=== PATIENT | female | born 1965 | race Caucasian/White ===

== ENCOUNTER 2016-07-13 07:41 | Day surgery (SDC) | payer OTHER ==
[2016-07-13 08:16] VITALS: BMI 44.9
[2016-07-13] MEDS ORDERED: PROPOFOL 20 ML ONE (10:55)
[2016-07-13] MEDS ORDERED: MIDAZOLAM HCL 2 MG/2 ML SINGLE DOSE VIAL ONE (10:56)
[2016-07-13] MEDS ORDERED: ceFAZolin SODIUM 1 GM VIAL ONE (11:24)
[2016-07-13] MEDS ORDERED: DEXAMETHASONE SOD PHOSPHATE 4 MG/1 ML VIAL ONE (11:26)
[2016-07-13] MEDS ORDERED: ONDANSETRON 4 MG/2 ML VIAL ONE (11:26)
[2016-07-13] MEDS ORDERED: BUPIVACAINE HCL/PF 0.25% (2.5MG/ML) 10 ML VIAL IJ ONE (11:38)
[2016-07-13] MEDS ORDERED: KETOROLAC TROMETHAMINE 30 MG/1 ML VIAL ONE (11:54)
[2016-07-13] MEDS ORDERED: LACTATED RINGERS SOLUTION 1,000 ML IV SCH (12:15)
[2016-07-13] MEDS ORDERED: ONDANSETRON 4 MG/2 ML VIAL IVPUSH PRN (12:59)
[2016-07-13] MEDS ORDERED: oxyCODONE HCL 5 MG TABLET PO PRN (12:59)
[2016-07-13] MEDS ORDERED: oxyCODONE HCL 5 MG TABLET ONE (13:21)
[2016-07-13 14:56] VITALS: TEMP 98.2
[2016-07-13 15:01] VITALS: BP 136/62; PULSE 72
--- NOTE | 2016-07-14 08:26 | OP ---
DATE OF OPERATION: 07/13/2016 SURGEON: Nicol Park MD NETWORK MANAGER: DELFIN Marks PREOPERATIVE DIAGNOSES:1. Right knee medial and lateral meniscal tear. 2. Right knee cartilage injury. 3. Right knee synovitis. POSTOPERATIVE DIAGNOSES: 1. Right knee medial and lateral meniscal tear. 2. Right knee cartilage injury. 3. Right knee synovitis. PROCEDURE: 1. Right knee arthroscopy, partial meniscectomy medial and lateral meniscus. 2. Right knee arthroscopy with chondroplasty and abrasion-plasty. 3. Right knee arthroscopy with synovectomy, major CPT code 80275, 10092, 2976. FINDINGS: 1. Medial meniscus posterior horn and body tear. 2. Lateral meniscus posterior horn tear. 3. Synovitis patellofemoral, medial and lateral notch area. 4. Grade 2-3 cartilage medial and femoral condyle. 5. ACL and PCL intact. 6. Diffuse grade 1-2 cartilage lateral joint line. 7. Grade 2-4 cartilage of the patellar and patellofemoral trochlea. DESCRIPTION OF PROCEDURE: Informed consent was obtained. The patient was taken to the operating room where the right lower extremity was prepped and draped in a sterile fashion. A tourniquet was placed on the right upper thigh but not inflated. Using standard arthroscopic technique, a lateral incision and portal were made which allowed for introduction of the camera into the suprapatellar bursa. This was then taken to the medial joint line where under direct visualization, a medial incision and portal were made. Excessive synovium noted in the medial, lateral, patellofemoral and notch area was removed by the up-biting shaver and Bovie cautery. This was found to bring inflammatory tissue into the joint surface, a source of joint pain and dysfunction. Probing of the medial and lateral meniscus found tears described in the findings. These were removed with an up-biting shaver and taken back to a stable rim. Grade 2-3 degenerative changes were treated with chondroplasty, removing all flaking surfaces with low setting Bovie used along the periphery. Grade 4 changes were treated with abrasion-plasty. All areas of the knee were once again re-examined. The knee was then drained. A single suture was placed on all portals. Sterile dressing was placed. The patient was transferred to the recovery room. NICOL PARK M.D. HERRERA/[id number]
--- NOTE | 2016-07-17 13:44 | PATH ---
Surgical Pathology Report Patient Name: SARAI TRAN [facility]. Rec. #: [id number] /Age/Gender: 1965 (Age: 51) / F Account: [id number] Location: [facility], 1928–1983 AMBULATORY Taken: 07/13/2016 Received: 07/13/2016 Reported: 07/17/2016 Physicians: Jason Caraballo M.D. Specimen(s) Received RIGHT KNEE SHAVINGS Clinical History Internal derangement right knee Final Diagnosis SOFT TISSUE, RIGHT KNEE, ARTHROSCOPIC SHAVINGS: SYNOVIUM AND FIBROCARTILAGE WITH MYXOHYALINE DEGENERATION. Electronically Signed Jamie Weller M.D. Gross Description Received in formalin, labeled "right knee shavings" is a 4.5 x 4.0 x 0.3 cm aggregate of magallon-yellow soft tissue fragments. A software support representative portion is submitted in one cassette. 07/16/201607/16/2016
== END 2016-07-13 14:45 | disposition home or self-care (01) ==
LOC: FASU 07:41
PROVIDERS: ATTEND Orthopaedic Surgery
PROC: 0SBC4ZZ Excision of Right Knee Joint, Percutaneous Endoscopic Approach (ICD-10-PCS; 2016-07-13)
PROC: 0SBC4ZZ Excision of Right Knee Joint, Percutaneous Endoscopic Approach (ICD-10-PCS; 2016-07-13)
PROC: 0SBC4ZZ Excision of Right Knee Joint, Percutaneous Endoscopic Approach (ICD-10-PCS; principal; 2016-07-13 11:28)
DX: S83.241A Other tear of medial meniscus, current injury, right knee, initial encounter (principal); S83.281A Other tear of lateral meniscus, current injury, right knee, initial encounter; S83.8X1A Sprain of other specified parts of right knee, initial encounter; M65.861 Other synovitis and tenosynovitis, right lower leg; X58.XXXA Exposure to other specified factors, initial encounter; Y93.9 Activity, unspecified; Y92.9 Unspecified place or not applicable
CPT/HCPCS: 84703; 88304-TC; 94760